=== PATIENT | male | born 1965 | race Caucasian/White ===

== ENCOUNTER 2023-02-04 17:48 | Emergency (ER) | payer OTHER, SELFPAY ==
[2023-02-04 17:48] VITALS: BP 163/92; PULSE 100; RESP 18; TEMP 36.6; O2SAT 100
--- NOTE | 2023-02-04 18:12 | ED.DENTAL ---
HPI - Dental/Oral General Chief complaint: Dental/Oral Stated complaint: Dental abcess Time Seen by Provider: 02/04/23 17:55 History of Present Illness HPI Narrative: 57-year-old male presents to the emergency room for evaluation of swelling to his jaw. Patient states that he was eating a bag of nuts last night when he believes he may have broken a tooth off. Woke up this morning with swelling to the right side of his jaw. Denies any dental pain. Related Data Home Medications Medication Instructions Recorded Confirmed lisinopril 40 mg tablet 40 mg PO DAILY 06/13/22 01/23/23 risankizumab-rzaa 150 mg/mL 150 mg subcut .COMPLEX 06/13/22 01/23/23 subcutaneous syringe (Skyrizi) simvastatin 20 mg tablet 20 mg PO DAILY 06/13/22 01/23/23 Allergies Allergy/AdvReac Type Severity Reaction Status Date / Time No Known Allergies Allergy Verified 02/04/23 17:48 Review of Systems Review of Systems: CONSTITUTIONAL: Denies fever, chills, or sweats. EYES: Denies visual changes, redness, or discharge. ENT: Denies rhinorrhea, congestion, sore throat, or otalgia. CARDIOVASCULAR: Denies chest pain, palpitations, or edema. RESPIRATORY: Denies cough or dyspnea. GASTROINTESTINAL: Denies abdominal pain, nausea, vomiting, or diarrhea. GENITOURINARY: Denies dysuria or hematuria. SKIN: Denies rash or itching. MUSCULOSKELETAL: Denies back pain, joint pain, or myalgia. NEUROLOGIC: Denies headache, numbness, dizziness, or weakness. PSYCHIATRIC: Denies anxiety or depression. [facility] Past Medical History Medical History (Updated 02/04/23 @ 18:12 by Lg Alexandre APRN) Arthritis Counseling on health promotion and disease prevention Current smoker Encounter for medication management Hypertension Mixed hyperlipidemia Psoriasis Psoriatic arthritis of multiple joints Surgical History Surgical History No pertinent past surgical history Family History Family History Mother Hypertension Lupus Social History Social History Smoking packs per day: 1.5 Smoking cigarettes per day: 30.0 Smoking status: Current every day smoker Alcohol intake: never Substance use: never Lack of Transportation: No Lack of Food: Never True Current Housing: I Have Housing Concerned About Future Housing: No Difficulty Paying Gas/Electric Bills: No Difficulty Paying for Meds: No Currently Unemployed: No Education: Associate Degree Difficulty w/ Childcare or Family Care: No Exam Narrative: GENERAL: Well-appearing, well-nourished, no physical limitations, and in no acute distress. HEAD: Normocephalic, atraumatic. EYES: Conjunctivae normal, PERRLA and EOMI. ENT: Widespread periodontal disease, multiple fractured teeth. Swelling and tenderness noted to the right lower mandible NECK: Supple. CHEST: Clear to auscultation. No respiratory distress. No wheezes rales or rhonchi. HEART: Regular rate and rhythm. No murmur heard. Normal peripheral pulses. EXTREMITIES: Normal range of motion. No edema. No clubbing or cyanosis SKIN: Warm, dry, no rash. No noted wounds NEURO: No focal deficits. Alert and oriented x3. MAEW. CN's II-XI intact bilaterally, normal gait PSYCH: Cooperative. Normal mood and affect. Course Vital Signs Vital signs: Vital Signs Temperature 36.6 C 02/04/23 17:48 Pulse Rate 100 02/04/23 17:48 Respiratory Rate 18 02/04/23 17:48 Blood Pressure 163/92 H 02/04/23 17:48 Pulse Oximetry 100 02/04/23 17:48 Oxygen Delivery Room Air 02/04/23 17:48 Temperature 36.6 C 02/04/23 17:48 Pulse Rate 100 02/04/23 17:48 Respiratory Rate 18 02/04/23 17:48 Blood Pressure 163/92 H 02/04/23 17:48 Pulse Oximetry 100 02/04/23 17:48 Oxygen Delivery Room Air 02/04/23 17:48 Discharge Plan Discharge Clinical Impression:
== END 2023-02-04 18:26 | disposition home or self-care (01) ==
LOC: ANHED 18:20
PROVIDERS: Emergency Provider Nurse Practitioner Family; PCP Family Medicine
DX: K04.7 Periapical abscess without sinus (principal); I10 Essential (primary) hypertension; E78.2 Mixed hyperlipidemia; M19.90 Unspecified osteoarthritis, unspecified site; L40.50 Arthropathic psoriasis, unspecified; F17.210 Nicotine dependence, cigarettes, uncomplicated
CPT/HCPCS: 99283

== ENCOUNTER 2023-10-02 08:47 | Outpatient (CLI) | payer OTHER, SELFPAY ==
[2023-10-02 12:32] LABS: Alanine Aminotransferase 32 U/L (6-50); Albumin Level 4.5 g/dL (3.5-5.1); Alkaline Phosphatase 81 U/L (38-126); Anion Gap 7 mmol/L (4-12); Aspartate Amino Transferase 47 U/L (17-59); Bilirubin,Total 0.6 mg/dL (0.2-1.3); Blood Urea Nitrogen 8 mg/dL (9-20); Calcium 9.4 mg/dL (8.4-10.2); Carbon Dioxide 24 mmol/L (22-30); Chloride 108 mmol/L (98-107); Cholesterol 163 mg/dL (0-200); Estimated Glomerular Filt Rate > 60; Glucose 95 mg/dL (65-110); HDL Direct 30 mg/dL; Potassium 4.5 mmol/L (3.4-5.0); Sodium 139 mmol/L (137-145); Triglycerides 205 mg/dL (<150)
[2023-10-02 12:43] LABS: LDL Cholesterol Direct 107 mg/dL
[2023-10-02 18:37] LABS: Hemoglobin 17.6 g/dL (14.0-18.0); Mean Corpuscular Hemoglobin 29.2 pg (26-34); Mean Corpuscular Volume 91.4 fl (80-100); Mean Platelet Volume 12.4 fl (7.4-10.4); Platelet Count Result 206 k/mm3 (150-375); Red Blood Count 6.02 M/mm3 (4.6-6.20); Red Cell Distribution Width 13.8 % (11.5-14.5); White Blood Count 10.6 K/mm3 (4.5-10.0)
[2023-10-02 19:10] LABS: Hemoglobin A1C 5.6 % (<5.7)
== END 2023-10-02 08:48 | disposition home or self-care (01) ==
LOC: ANHGOSHLAB 08:48
PROVIDERS: PCP Family Medicine; Visit Provider Family Medicine
DX: E78.2 Mixed hyperlipidemia (principal); E66.9 Obesity, unspecified; I10 Essential (primary) hypertension; R73.09 Other abnormal glucose
CPT/HCPCS: 36415; 80053; 80061; 83036; 84443; 85027

== ENCOUNTER 2023-11-06 08:15 | Outpatient (CLI) | payer OTHER, SELFPAY ==
[2023-11-06 13:23] LABS: Hematocrit 51.2 % (42.0-52.0); Hemoglobin 16.6 g/dL (14.0-18.0); Mean Corpuscular HGB Conc 32.4 g/dl (32-36); Mean Corpuscular Hemoglobin 29.5 pg (26-34); Mean Corpuscular Volume 90.9 fl (80-100); Mean Platelet Volume 12.6 fl (7.4-10.4); Platelet Count Result 217 k/mm3 (150-375); Red Blood Count 5.63 M/mm3 (4.6-6.20); Red Cell Distribution Width 13.7 % (11.5-14.5)
== END 2023-11-06 08:16 | disposition home or self-care (01) ==
LOC: ANHGOSHLAB 08:16
PROVIDERS: PCP Family Medicine; Visit Provider Family Medicine
DX: D72.829 Elevated white blood cell count, unspecified (principal); Z79.899 Other long term (current) drug therapy
CPT/HCPCS: 36415; 85027